=== PATIENT | female | born 1965 | race Caucasian/White ===

== ENCOUNTER 2023-06-06 22:10 | Inpatient (IN) | payer SELFPAY ==
[2023-06-07] MEDS ORDERED: Morphine 2 MG/ML VIAL SLOW IVP PRN (01:04)
[2023-06-07] MEDS ORDERED: Ipratropium/Albuterol 3 ML NEB NEB PRN (01:04)
[2023-06-07] MEDS ORDERED: Promethazine HCl 25 MG/ML VIAL IM PRN ×2 (01:04→18:39)
[2023-06-07] MEDS ORDERED: Ketorolac Tromethamine 30 MG/ML VIAL IVP PRN ×3 (01:16→19:33)
[2023-06-07] MEDS: Ondansetron PF 4 MG/2 ML Vial IVP PRN ×2 (01:45→11:41)
[2023-06-07] MEDS: Benzocaine 20% Spray 60 ML CAN PO SCH ×7 (01:46→20:44)
[2023-06-07] MEDS: Sodium Chloride 0.9% 1,000 ML IV SCH ×3 (01:46→18:38)
[2023-06-07 03:47] VITALS: BMI 24.1
[2023-06-07] MEDS: Acetaminophen 500 MG TAB PO SCH ×3 (05:24→18:37)
[2023-06-07 06:55] LABS: #Monocytes 0.9 thou/uL (0.11-0.59); #Neutrophils 5.2 thou/uL (1.40-6.50); %Basophils 0.4 % (0.0-1.0); %Eosinophils 0.1 % (0.0-10.0); %Lymphocytes 13.5 % (21.0-51.0); %Monocytes 13.2 % (0.0-10.0); %Neutrophils 72.7 % (42.0-75.0); Hematocrit 37.2 % (36.0-47.0); Hemoglobin 12.3 g/dL (12.0-16.0); Mean Corpuscular HGB CONC 33.1 g/dL (32.0-36.0); Mean Corpuscular Hemoglobin 32.7 pg (27.0-31.0); Mean Corpuscular Volume 98.9 fl (78.0-98.0); Mean Platelet Volume 10.6 fL (7.4-10.4); Platelet Count 215 10x3/uL (130-400); RBC Distribution Width 12.6 % (11.5-14.5); Red Blood Cell (RBC) Count 3.76 mill/uL (4.20-5.40); White Blood Cell (WBC) Count 7.1 10x3/uL (4.8-10.8)
[2023-06-07 07:08] LABS: INR-International Normal Ratio 1.1; PTT 28.2 sec (22.9-36.1); Prothrombin Time 14.3 sec (12.0-14.7)
[2023-06-07 07:16] LABS: Phosphorus 4.9 mg/dL (2.3-4.7)
[2023-06-07 07:26] LABS: Anion Gap 13 mmol/L (10-20); BUN (Urea Nitrogen) 11 mg/dL (9.8-20.1); Calc. Creatinine Clearance 76 mL/min (70-130); Calcium 8.8 mg/dL (7.8-10.44); Carbon Dioxide 30 mmol/L (22-29); Chloride 106 mmol/L (98-107); Estimated GFR 87; Glucose 88 mg/dL (70-105); Magnesium 1.9 mg/dL (1.6-2.6); Sodium 145 mmol/L (136-145)
[2023-06-07] MEDS: Famotidine/PF 20 mg/2ml Vial SLOW IVP SCH ×2 (11:41→20:43)
[2023-06-07] MEDS ORDERED: GASTROGRAFIN 30 ML BOT ONE (13:40)
[2023-06-07] MEDS ORDERED: Piperacillin/Tazobactam 3.375 GM in Sodium Chloride 0.9% 100 ML IVPB SCH (17:15)
[2023-06-07] MEDS ORDERED: Piperacillin/Tazobactam 3.375 GM VIAL ONE (17:40)
[2023-06-07] MEDS ORDERED: Sodium Chloride 0.9% 100 ML ONE (17:40)
[2023-06-07] MEDS ORDERED: Dexamethasone 4 mg/ml Vial ONE (17:45)
[2023-06-07] MEDS ORDERED: Rocuronium Bromide 10 MG/ML (10ML VIAL) ONE ×2 (17:45→18:12)
[2023-06-07] MEDS ORDERED: Lidocaine 1% PF 5 ML VIAL ONE ×2 (17:45→18:12)
[2023-06-07] MEDS ORDERED: PROPOFOL 20 ML ONE (17:45)
[2023-06-07] MEDS ORDERED: Ondansetron PF 4 MG/2 ML Vial ONE (17:45)
[2023-06-07] MEDS ORDERED: SUGAMMADEX SODIUM 200 MG/2 ML VIAL ONE ×2 (17:46→19:11)
[2023-06-07] MEDS ORDERED: Succinylcholine 200 MG/10 ml SYRINGE FS ONE ×2 (17:46→18:12)
[2023-06-07] MEDS ORDERED: fentaNYL PF 100 MCG/2 ML SYRINGE ONE (17:46)
[2023-06-07] MEDS ORDERED: Bupivacaine 0.25% HCL 30 ML VIAL ONE (17:51)
[2023-06-07] MEDS ORDERED: EPINEPHrine 1 MG/ML VIAL ONE (17:51)
[2023-06-07] MEDS ORDERED: Dexamethasone 20 MG/5 ML VIAL ONE (18:12)
[2023-06-07] MEDS ORDERED: PROPOFOL 200 MG/20 ML VIAL ONE (18:12)
[2023-06-07] MEDS ORDERED: PHENYLEPHRINE-NS 100 MCG/ML 10 ML SYRINGE ONE ×2 (18:12→18:32)
[2023-06-07] MEDS ORDERED: Ketorolac Tromethamine 30 MG/ML VIAL ONE (18:12)
[2023-06-07] MEDS ORDERED: Labetalol HCl 100 MG/20 ML VIAL ONE ×2 (18:12→18:55)
[2023-06-07] MEDS ORDERED: Albumin 5% 500 ML ONE (18:35)
[2023-06-07] MEDS ORDERED: Ondansetron HCl/PF 4 MG/2 ML Vial IVP PRN (18:39)
[2023-06-07] MEDS ORDERED: traMADol HCl 50 MG TAB PO PRN (19:34)
[2023-06-07] MEDS ORDERED: Meperidine HCl/PF 25 MG/ML VIAL ONE (19:58)
[2023-06-08] MEDS: Acetaminophen 500 MG TAB PO SCH ×3 (00:17→12:50)
[2023-06-08] MEDS: Benzocaine 20% Spray 60 ML CAN PO SCH ×5 (00:52→09:24)
[2023-06-08] MEDS: Sodium Chloride 0.9% 1,000 ML IV SCH ×2 (02:47→09:26)
[2023-06-08] MEDS ORDERED: Benzocaine 20% Spray 60 ML CAN PO PRN (09:15)
[2023-06-08] MEDS: Famotidine/PF 20 mg/2ml Vial SLOW IVP SCH (09:24)
[2023-06-08 12:02] VITALS: TEMP 98.2
[2023-06-08 16:15] VITALS: BP 121/75
[2023-06-08] MEDS ORDERED: Acetaminophen 500 MG TAB PO SCH (17:00)
[2023-06-08] MEDS ORDERED: Famotidine 20 MG TAB PO SCH (21:00)
[2023-06-10] MEDS ORDERED: FLU VACC QS2023-24(6MOS UP)/PF 60 MCG/0.5 ML SYRINGE IM ONE (09:00)
== END 2023-06-08 17:55 | disposition home or self-care (01) | DRG 337 ==
LOC: SURG B 06-07 00:05 → OBSVTOIN 06-07 00:05
PROVIDERS: ADMIT Surgery; ATTEND Surgery
PROC: 0DN84ZZ Release Small Intestine, Percutaneous Endoscopic Approach (ICD-10-PCS; principal; 2023-06-07)
PROC: 0DTJ4ZZ Resection of Appendix, Percutaneous Endoscopic Approach (ICD-10-PCS; 2023-06-07)
DX: K56.50 Intestinal adhesions [bands], unspecified as to partial versus complete obstruction (principal); Z98.51 Tubal ligation status; Z88.5 Allergy status to narcotic agent
CPT/HCPCS: 36415; 74018; 74250; 80048; 83735; 84100; 85025; 85610; 85730; 86850; 86900; 86901; 88304; A4314; J0171; J1100; J1650; J1885; J2175; J2272; J2405; J2543; J2550; J2704; J3490; J7050; P9045; S0020; S0028

== ENCOUNTER 2023-12-27 15:16 | Emergency (ER) | payer SELFPAY ==
[2023-12-27 16:31] LABS: #Basophils Less than 0.03 10x3/uL (0.0-0.2); #Eosinphils Less than 0.03 10x3/uL (0.0-0.7); %Basophils 0.1 % (0.0-1.0); %Eosinophils 0.1 % (0.0-10.0); %Lymphocytes 9.3 % (21.0-51.0); %Monocytes 8.6 % (0.0-10.0); %Neutrophils 81.4 % (42.0-75.0); Hematocrit 38.8 % (36.0-47.0); Hemoglobin 13.2 g/dL (12.0-16.0); Mean Corpuscular Hemoglobin 32.3 pg (27.0-31.0); Mean Corpuscular Volume 94.9 fL (78.0-98.0); Mean Platelet Volume 9.5 fL (7.4-10.4); Platelet Count 262 10x3/uL (130-400); RBC Distribution Width 12.7 % (11.5-14.5); Red Blood Cell (RBC) Count 4.09 mill/uL (4.20-5.40)
[2023-12-27 16:41] LABS: ALT (SGPT) 13 U/L (8-55); AST (SGOT) 19 U/L (5-34); Albumin 3.7 g/dL (3.5-5.0); Alkaline Phosphatase 66 U/L (40-110); Anion Gap 18 mmol/L (10-20); BUN (Urea Nitrogen) 10 mg/dL (9.8-20.1); Bilirubin, Total 0.4 mg/dL (0.2-1.2); Calc. Creatinine Clearance 0 mL/min (70-130); Calcium 9.4 mg/dL (7.8-10.44); Carbon Dioxide 20 mmol/L (22-29); Chloride 99 mmol/L (98-107); Estimated GFR 80; Globulin 3.8 g/dL (2.4-3.5); Glucose 94 mg/dL (70-105); Potassium 4.1 mmol/L (3.5-5.1); Protein, Total 7.5 g/dL (6.0-8.3); Sodium 133 mmol/L (136-145)
[2023-12-27] MEDS ORDERED: Ketorolac Tromethamine 30 MG (1 mL) VIAL ONE (17:37)
== END 2023-12-27 17:45 | disposition home or self-care (01) ==
LOC: ERS 15:16
DX: R50.9 Fever, unspecified (principal); R05.9 Cough, unspecified
CPT/HCPCS: 36415; 71045; 80053; 83605; 85025; 87040; 93005; 96372; J1885